=== PATIENT | male | born 1965 | race American Indian/Alaskan Native ===

== ENCOUNTER 2016-07-11 19:00 | Emergency (ER) | payer OTHER ==
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
[2016-07-11 19:28] VITALS: BP 143/90
== END 2016-07-11 19:50 | disposition home or self-care (01) ==
LOC: CC.ED 19:00
DX: S60.511A Abrasion of right hand, initial encounter (principal); S20.319A Abrasion of unspecified front wall of thorax, initial encounter; M79.642 Pain in left hand; V49.40XA Driver injured in collision with unspecified motor vehicles in traffic accident, initial encounter; Y92.410 Unspecified street and highway as the place of occurrence of the external cause
CPT/HCPCS: 71020; 73130-LT; 99284